=== PATIENT | male | born 1935 | race Caucasian/White ===

== ENCOUNTER 2021-08-08 13:13 | Outpatient (REF) | payer MEDICARE, SELFPAY ==
--- NOTE | ~2021-08-08 | XR_ITS ---
EXAMINATION: XR CHEST CLINICAL INFORMATION: Cough. COMPARISON: None TECHNIQUE: 2 views of the chest were obtained. FINDINGS: The lungs are well-expanded and clear of acute process. Minimal atelectatic changes left lung base. Heart size and pulmonary vascularity is normal. 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 No gross bony abnormality seen. XR/XR chest 2V IMPRESSION: Minimal atelectatic changes left lung base. No acute process seen.
[2021-08-08 13:35] LABS: Binax Internal Control QC Valid; Binax Now Covid-19 Ag Positive (Negative); Binax Performed by: HO.BONILM
== END 2021-08-08 13:14 | disposition home or self-care (01) ==
LOC: HO.HMGCLDS 13:13
PROVIDERS: Visit Provider Physician Assistant
DX: J06.9 Acute upper respiratory infection, unspecified (principal); R05.9 Cough, unspecified
CPT/HCPCS: 71046

== ENCOUNTER 2022-04-24 08:24 | Outpatient (REF) | payer MEDICARE, SELFPAY ==
[2022-04-24 11:17] LABS: MANUAL DIFF FLAG NO
[2022-04-24 11:32] LABS: Basophils Absolute Auto 0.1 X10*3/uL (0.0-0.2); Basophils Percent Auto 1.1 % (0-2); Eosinophils Absolute Auto 0.2 X10*3/uL (0.0-0.4); Eosinophils Percent Auto 2.4 % (0-4); Hematocrit 34.8 % (42.0-52.0); Imm Gran Abs Auto 0.03 X10*3/uL (0.00-0.03); Imm Gran Pct Auto 0.4 % (0.0-0.4); Lymphocytes Absolute Auto 1.8 X10*3/uL (1.2-4.9); Lymphocytes Percent Auto 24.8 % (20-40); Mean Corpuscular HGB Conc 31.6 g/dl (31.0-36.0); Mean Corpuscular Hemoglobin 29.5 pg (27.0-33.0); Mean Corpuscular Volume 93.3 fL (80.0-98.0); Mean Platelet Volume 9.7 fL (9.4-12.4); Monocytes Absolute Auto 0.9 X10*3/uL (0.1-1.2); Monocytes Percent Auto 12.1 % (2-11); Neutrophils Absolute Auto 4.2 x10*3/uL (2.0-8.3); Neutrophils Percent Auto 59.2 % (45-73); Platelet Count 235 X10*3/uL (160-400); Red Blood Count 3.73 X10*6/uL (4.60-5.80); Red Cell Distribution Width 15.6 % (11.0-16.0); White Blood Count 7.2 X10*3/uL (4.8-10.8)
[2022-04-24 12:56] LABS: Ferritin 44 ng/mL (20-250); Iron 87 mcg/dL (45-160); Percent Iron Saturation 22 % (15-50); Total Iron Binding Capacity 399 mcg/dL (228-428); Unsaturated Iron Binding 312 ug/dL
== END 2022-04-24 08:25 | disposition home or self-care (01) ==
LOC: HO.HMGCLDS 08:24
PROVIDERS: PCP Internal Medicine; Visit Provider Internal Medicine
DX: D64.9 Anemia, unspecified (principal)
CPT/HCPCS: 36415; 82728; 83540; 85025

== ENCOUNTER 2022-12-02 07:59 | Outpatient (REF) | payer MEDICARE, SELFPAY ==
[2022-12-02 11:38] LABS: MANUAL DIFF FLAG NO
[2022-12-02 12:05] LABS: Basophils Absolute Auto 0.1 X10*3/uL (0.0-0.2); Basophils Percent Auto 1.5 % (0-2); Eosinophils Absolute Auto 0.1 X10*3/uL (0.0-0.4); Eosinophils Percent Auto 2.2 % (0-4); Hematocrit 39.9 % (42.0-52.0); Hemoglobin 12.9 g/dl (14.0-18.0); Imm Gran Abs Auto 0.02 X10*3/uL (0.00-0.03); Imm Gran Pct Auto 0.3 % (0.0-0.4); Lymphocytes Absolute Auto 1.7 X10*3/uL (1.2-4.9); Lymphocytes Percent Auto 28.5 % (20-40); Mean Corpuscular HGB Conc 32.3 g/dl (31.0-36.0); Mean Corpuscular Hemoglobin 29.1 pg (27.0-33.0); Mean Corpuscular Volume 89.9 fL (80.0-98.0); Mean Platelet Volume 9.3 fL (9.4-12.4); Monocytes Absolute Auto 0.8 X10*3/uL (0.1-1.2); Monocytes Percent Auto 12.8 % (2-11); Neutrophils Absolute Auto 3.3 x10*3/uL (2.0-8.3); Neutrophils Percent Auto 54.7 % (45-73); Platelet Count 231 X10*3/uL (160-400); Red Blood Count 4.44 X10*6/uL (4.60-5.80); Red Cell Distribution Width 17.1 % (11.0-16.0); White Blood Count 5.9 X10*3/uL (4.8-10.8)
[2022-12-02 12:26] LABS: Estimated Average Glucose 111 mg/dL; Hemoglobin A1c % 5.5 %
[2022-12-02 12:55] LABS: Alanine Aminotransferase 30 U/L (0-40); Alkaline Phosphatase 76 U/L (39-117); Anion Gap 18 (12-20); Aspartate Amino Transferase 35 U/L (5-37); Bilirubin Total 0.6 mg/dL (0.0-1.0); Blood Urea Nitrogen 9 mg/dL (9-16); Calcium 9.8 mg/dL (8.4-10.2); Carbon Dioxide 23 mmol/L (22-29); Chloride 104 mmol/L (96-108); Estimated Glomerular Filt Rate > 60; Glucose Random 130 mg/dL (60-115); Iron 40 mcg/dL (45-160); Percent Iron Saturation 10 % (15-50); Potassium 4.8 mmol/L (3.3-5.1); Sodium 140 mmol/L (135-145); Total Iron Binding Capacity 403 mcg/dL (228-428); Total Protein 7.8 g/dL (6.5-8.0); Unsaturated Iron Binding 363 ug/dL
[2022-12-02 13:01] LABS: Ferritin 53 ng/mL (20-250)
== END 2022-12-02 08:00 | disposition home or self-care (01) ==
LOC: HO.HMGCLDS 07:59
PROVIDERS: PCP Internal Medicine; Visit Provider Internal Medicine
DX: D50.9 Iron deficiency anemia, unspecified (principal); E11.42 Type 2 diabetes mellitus with diabetic polyneuropathy
CPT/HCPCS: 36415; 80053; 82728; 83036; 83540; 85025

== ENCOUNTER 2023-05-09 08:46 | Outpatient (AMB) | payer MEDICARE, SELFPAY ==
--- NOTE | 2023-05-09 11:02 | MHC.OFFWIV ---
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 Denies fever or chills. Denies shortness of breath. Denies known exposure to sick contacts. Has been taking otc cold/flu medication at the encouragement of his daughter who is an RN. [facility] Social History Patient Tobacco Use Status: Former Tobacco user Review of Systems Const All systems reviewed & are unremarkable except as noted in HPI and below Physical Exam Vital Signs: Last Vital Signs Temp 97.6 F 05/09/23 11:03 Pulse 83 05/09/23 11:03 BP 120/78 05/09/23 11:03 Pulse Ox 98 05/09/23 11:03 Oxygen Delivery Method Room Air 05/09/23 11:03 BMI result Body Mass Index 27.2 Const General: cooperative and no acute distress Limitations: no limitations HEENT Head: Yes normal to inspection Ears: hearing grossly normal bilaterally General nose exam: Normal external nose present, Normal nares present and Normal nasal mucous membranes and turbinates present Face and sinus: Yes normal facial exam Mouth: Normal oral and palatal mucosa present Throat: Yes posterior oropharynx normal Neck Neck: Yes no lymphadenopathy Resp Effort & Inspection: normal respiratory effort and able to speak in complete sentences Auscultation: clear to auscultation bilaterally Cardio Palpation: normal PMI Rate: regular rate Rhythm: regular rhythm Skin General skin exam: no rashes or lesions noted Extrem General: Yes capillary refill normal and Yes no clubbing, cyanosis or edema Psych Mental Status: mental status grossly normal Speech and movement: Normal speech and movement present Results AMB Rapid Strep AMB Rapid Strep Negative Last Edit by Martha Birmingham CMA on 05/09/23 11:19 Assessment & Plan Assessment & Plan (1) URI (upper respiratory infection): Code(s): J06.9 - Acute upper respiratory infection, unspecified Qualifiers: URI type: unspecified viral URI Qualified Code(s): J06.9 - Acute upper respiratory infection, unspecified Plan: Presentation represents likely viral URI. Rapid strep was negative. Discussed ongoing conservative measures with otc decongestants/cold and flu products. Adequate water intake encouraged. He feels like he is starting to improve, however we discussed if he worsens or new symptoms develop he can return to the clinic for further evaluation. He agrees to plan. Coding Level of Care Code Est Pt Level 3 (52698) Diagnoses Viral upper respiratory tract infection J06.9 URI type: unspecified viral URI
[2023-05-09 11:03] VITALS: BP 120/78; PULSE 83; TEMP 36.4; O2SAT 98; BMI 27.2
== END 2023-05-09 11:23 | disposition home or self-care (01) ==
PROVIDERS: PCP Internal Medicine; Visit Provider Nurse Practitioner Family
DX: J06.9 Acute upper respiratory infection, unspecified (principal); J02.9 Acute pharyngitis, unspecified
CPT/HCPCS: 87880; 99213

== ENCOUNTER 2024-11-10 15:12 | Outpatient (REF) | payer MEDICARE, SELFPAY ==
--- OUTSIDE RECORDS SUMMARY | 2024-06-24 05:00 | XMS_ITS ---
[facility] Address [address] [place] [address] Care Team Providers Care Computer Bookkeeper Name Role Phone Conrad Tang MD Primary Care Provider Jasmina Hdez Unavailable [phone] Cutler Medications Medication SIG (Take, Route, Frequency, Duration) Notes Start Date End Date Status Ciclopirox Olamine 0.77 % 1 application to affected area Externally Twice a day to effected areas on feet for 30 days Active Econazole Nitrate 1 % 1 application to affected area Externally Once a day for 30 days Not-Taking amLODIPine Besylate 10 MG Orally Active Econazole Nitrate 1 % 1 application to affected area Externally Once a day for 30 days Not-Taking Extra Depth Diabetic Shoes with 3 Pair Custom heat-molded multi-density innersoles for 1 year Dx: Active Econazole Nitrate 1 % 1 application to affected area Externally Once a day for 30 days 08/02/2015 Not-Taking Econazole Nitrate 1 % 1 application to affected area Externally Once a day for 30 days Not-Taking Zoloft Not-Taking Extra-Depth Diabetic Shoes with 3 Pair Custom heat-molded multi-density innersoles . 1pair shoes/3sets inserts . . for 1 year 04/29/2012 Not-Takin g Tricor Not-Taking Zostavax 65 ml Not-T aking Diovan Not-Taking Aspir-81 Not-Taking Toprol XL Not-Taking Lipitor Not-Taking Ciclopirox Olamine 0.77 % 1 application to affected area Externally Twice a day to effected areas on feet for 30 days Active Sertraline HCl 50 MG Orally Active Valsartan 160 MG Orally Act evy metFORMIN HCl 500 MG Orally Active Metoprolol Succinate Active Atorvastatin Calcium Active Ammonium Lactate 12 % 1 application Externally Twice a day Active Aspirin 81 MG Orally Active Clotrimazole-Betamethason e 1-0.05 % 1 application to affected area Externally Twice a day to affected areas on feet for 30 days Active Fenofibrate 145 MG Orally A ctive Encounters Encounter Location Date Provider Diagnosis [facility] [address] [address] 06/24/2024 Jasmina Khan Plan Of Treatment Next Appt Details Provider Name:Jasmina Birch vesta, 01/31/2025 09:00:00 AM, [address] [place] [address], [id number], Progress Notes * Ulises JEROME EDOB:1935 (89 yo M)Acc No.[id number]:06/24/2024 Progress Note Patient: Ulises MYERS Provider: Jalen Khan DPM :1935 A ge:88 Y S ex:Male Date:06/24/2024 [facility] Pcp:Conrad Tang MD Subjective: * Chief Complaints: * [address] Cutler. * Medical History: M easles, Heart disease, Chicken pox, Cholesterol, type II diabetes. * Medications: T aking Extra Depth Diabetic Shoes with 3 Pair Custom heat-molded multi-density innersoles for 1 year Dx: , Taking Ciclopirox Olamine 0.77 % Cream 1 application to affected area Externally Twice a day to effected areas on feet , Taking amLODIPine Besylate 10 MG Tablet Orally , Taking Ammonium Lactate 12 % Cream 1 application Externally Twice a day , Taking Aspirin 81 MG Tablet Delayed Release Orally , Taking Atorvastatin Calcium , Taking Clotrimazole-Betamethasone 1-0.05 % Cream 1 application to affected area Externally Twice a day to affected areas on feet , Taking Fenofibrate 145 MG Tablet Orally , Taking metFORMIN HCl 500 MG Tablet Orally , Taking Metoprolol Succinate , Taking Sertraline HCl 50 MG Tablet Orally , Taking Valsartan 160 MG Tablet Orally , Taking Ciclopirox Olamine 0.77 % Cream 1 application to affected area Externally Twice a day to effected areas on feet , Not-Taking/PRN Aspir-81 , Not-Taking/PRN Zostavax 65 ml , Not-Taking/PRN Diovan , Not- Taking/PRN Lipitor , Not-Taking/PRN Toprol XL , Not-Taking/PRN Tricor , Not-Taking/PRN Zoloft , Not-Taking/PRN Extra-Depth Diabetic Shoes with 3 Pair Custom heat-molded multi-density innersoles . . 1pair shoes/3sets inserts . . , Not-Taking/PRN Econazole Nitrate 1 % Cream 1 application to affected area Externally Once a day , Not-Taking/PRN Econazole Nitrate 1 % Cream 1 application to affected area Externally Once a day , Not-Taking/PRN Econazole Nitrate 1 % Cream 1 application to affected area Externally Once a day , Not-Taking/PRN Econazole Nitrate 1 % Cream 1 application to affected area Externally Once a day Objective: * Vitals: Assessment: Plan: * Treatment: * Images: * The named appointment provid er may or may not be the originator of this progress note, and it is not deemed complete until electronically signed by the appointment provider. Sign off status: Pending * Provider: Jalen Khan DPM Date: 0 06/24/2024 Generated for Anne anderson/Mckenna/Bharathi on: 0 11/10/2024 06:05 PM EDT
--- NOTE | ~2024-11-10 | XR_ITS ---
EXAMINATION: XR CHEST 2 view CLINICAL INFORMATION: left sided rales COMPARISON: August 08, 2021 TECHNIQUE: PA and lateral otherwise: Pulmonary markings are similar to the prior. Views of the chest were obtained. FINDINGS: Heart size is within normal limits. There are mediastinal wires. There are multiple surgical clips overlying the cardiac and mediastinal silhouette. There is stable mild flattening of the right hemidiaphragm. Left hemidiaphragm is minimally indistinct. XR/XR chest 2V IMPRESSION: Postsurgical changes and minimal left basilar atelectasis. Electronically signed by: Brock Laguerre MD 11/10/2024 03:50 PM EDT
== END 2024-11-10 15:13 | disposition home or self-care (01) ==
LOC: HO.XRAY 15:12
PROVIDERS: PCP Internal Medicine; Visit Provider Internal Medicine
DX: R09.89 Other specified symptoms and signs involving the circulatory and respiratory systems (principal)
CPT/HCPCS: 71046

== ENCOUNTER → 2024-11-10 15:35 | Outpatient (BNV) | payer MEDICARE, SELFPAY | PROVIDERS: PCP Internal Medicine; Visit Provider Radiology Diagnostic Radiology | DX: R09.89 Other specified symptoms and signs involving the circulatory and respiratory systems (principal) | CPT/HCPCS: 71046 ==